=== PATIENT | female | born 1995 | race Caucasian/White ===

== ENCOUNTER 2017-12-16 06:19 | Inpatient (IN) | payer OTHER ==
[2017-12-16] MEDS ORDERED: OXYTOCIN 30 UNITS/LR 500 ML IV (07:00)
[2017-12-16] MEDS ORDERED: CARBOPROST 250 MCG INJ IM (07:00)
[2017-12-16] MEDS ORDERED: METHYLERGONOVINE 0.2 MG INJ IM (07:00)
[2017-12-16] MEDS ORDERED: MISOPROSTOL 200 MCG TAB PR (07:00)
[2017-12-16] MEDS ORDERED: IBUPROFEN 600 MG TAB PO (07:00)
[2017-12-16 07:11] LABS: ADD MAN DIFF? NO
[2017-12-16 07:19] LABS: BASOPHILS % 0.3 % (0.0-2.0); EOSINOPHILS # 0.1 10^3/ul (0.0-0.5); EOSINOPHILS % 0.9 % (0.0-7.0); HEMATOCRIT 35.4 % (37.0-47.0); HEMOGLOBIN 11.7 g/dl (12.0-16.0); LYMPHOCYTES # 2.9 10^3/ul (0.8-2.9); LYMPHOCYTES % 33.4 % (15.0-51.0); MEAN CORPUSCULAR HEMOGLOBIN 29.5 pg (29.0-33.0); MEAN CORPUSCULAR HGB CONC 33.1 g/dl (32.0-37.0); MEAN CORPUSCULAR VOLUME 89.4 fl (82.0-101.0); MEAN PLATELET VOLUME 10.3 fl (7.4-10.4); MONOCYTE # 0.8 10^3/ul (0.3-0.9); NEUTROPHIL # 4.9 10^3/ul (1.6-7.5); NEUTROPHILS % 56.2 % (39.0-77.0); PLATELET COUNT 298 10^3/UL (140-415); RED BLOOD COUNT 3.96 10^6/ul (4.20-5.40); RED CELL DISTRIBUTION WIDTH 14.4 % (11.5-14.5)
[2017-12-16 07:19] LABS: WHITE BLOOD COUNT 8.7 10^3/ul (4.8-10.8)
[2017-12-16 07:40] LABS: INR 0.91; PARTIAL THROMBOPLASTIN TIME 23.6 Sec (25.0-35.0); PROTIME 12.3 Sec (11.9-14.9)
[2017-12-16] MEDS: AMPICILLIN 2 GM/NS (PMX) 100 ML IV (08:03)
[2017-12-16] MEDS: LACTATED RINGER'S 1,000 ML IV* ×3 (08:03→23:00)
[2017-12-16] MEDS: BUTORPHANOL 2 MG INJ IV (08:43)
[2017-12-16] MEDS ORDERED: EPHEDrine SULFATE 50 MG/5 ML SYG IV (09:30)
[2017-12-16] MEDS ORDERED: FENTAnyl 2MCG/ML-ROPIV 0.2% 100 ML BAG EPI (09:30)
[2017-12-16] MEDS ORDERED: DIPHENHYDRAMINE 50 MG INJ IV (09:30)
[2017-12-16] MEDS ORDERED: NALOXONE (0.4 MG/ML) INJ IV (09:30)
[2017-12-16] MEDS ORDERED: ONDANSETRON 4 MG INJ IV ×2 (09:30→15:30)
[2017-12-16] MEDS ORDERED: FENTAnyl 2MCG/ML-ROPIV 0.2% 100 ML (09:31)
[2017-12-16] MEDS: OXYTOCIN 30 UNITS/LR 500 ML IV ×3 (11:12→17:54)
[2017-12-16] MEDS: AMPICILLIN 1 GM/NS (PMX) 50 ML IV (11:16)
[2017-12-16 12:39] LABS: AMPHETAMINE/METHAMPHETAMINE Negative (NEGATIVE); BARBITURATES Negative (NEGATIVE); BENZODIAZEPINES Negative (NEGATIVE); CANNABINOIDS Negative (NEGATIVE); COCAINE Negative (NEGATIVE); OPIATES Negative (NEGATIVE)
[2017-12-16] MEDS: LIDOCAINE 1% (MPF) 30 ML INJ INJ (13:50)
[2017-12-16] MEDS ORDERED: ACETAMINOPHEN 325 MG TAB PO (15:30)
[2017-12-16] MEDS ORDERED: HYDROCODONE/APAP (5/325) TAB PO ×2 (15:30)
[2017-12-16] MEDS ORDERED: OXYCODONE/ASPIRIN (4.88/325) TAB PO ×2 (15:30)
[2017-12-16] MEDS: BENZOCAINE 20% 56 ML SPRAY TOP (17:48)
[2017-12-16] MEDS: WITCH HAZEL/GLYCERIN PAD PR (17:49)
[2017-12-16] MEDS: DIBUCAINE 1% 30 GM OINT PR (17:49)
[2017-12-16] MEDS: LANOLIN 7 GM TUBE TOP (17:50)
[2017-12-16] MEDS: IBUPROFEN 600 MG TAB PO ×2 (17:50→23:24)
[2017-12-16 21:48] LABS: HIV 1&2 ANTIBODY NEGATIVE (NEGATIVE)
[2017-12-16] MEDS: SENNA/DOCUSATE NA (8.6MG/50MG) TAB PO (21:58)
[2017-12-17] MEDS: IBUPROFEN 600 MG TAB PO ×3 (05:44→17:24)
[2017-12-17 07:20] LABS: ADD MAN DIFF? NO
[2017-12-17 07:23] LABS: WHITE BLOOD COUNT 11.8 10^3/ul (4.8-10.8)
[2017-12-17 07:23] LABS: BASOPHILS % 0.3 % (0.0-2.0); EOSINOPHILS # 0.1 10^3/ul (0.0-0.5); EOSINOPHILS % 1.2 % (0.0-7.0); HEMATOCRIT 34.5 % (37.0-47.0); HEMOGLOBIN 11.3 g/dl (12.0-16.0); LYMPHOCYTES # 3.1 10^3/ul (0.8-2.9); LYMPHOCYTES % 26.4 % (15.0-51.0); MEAN CORPUSCULAR HEMOGLOBIN 29.2 pg (29.0-33.0); MEAN CORPUSCULAR HGB CONC 32.8 g/dl (32.0-37.0); MEAN CORPUSCULAR VOLUME 89.1 fl (82.0-101.0); MEAN PLATELET VOLUME 10.4 fl (7.4-10.4); MONOCYTE # 1.1 10^3/ul (0.3-0.9); MONOCYTES % 8.9 % (0.0-11.0); NEUTROPHIL # 7.4 10^3/ul (1.6-7.5); NEUTROPHILS % 62.9 % (39.0-77.0); PLATELET COUNT 259 10^3/UL (140-415); RED BLOOD COUNT 3.87 10^6/ul (4.20-5.40); RED CELL DISTRIBUTION WIDTH 14.6 % (11.5-14.5)
[2017-12-17 09:15] LABS: HEPATITIS B SURFACE ANTIGEN NEGATIVE (NEGATIVE)
[2017-12-17] MEDS: SENNA/DOCUSATE NA (8.6MG/50MG) TAB PO ×2 (09:18→22:04)
[2017-12-17 17:35] LABS: RAPID PLASMA REAGIN NONREACTIVE (NR)
[2017-12-18] MEDS: IBUPROFEN 600 MG TAB PO ×2 (00:29→05:52)
[2017-12-18] MEDS: MINERAL OIL LIGHT 10 ML VIAL TOP (02:11)
[2017-12-18] MEDS: SENNA/DOCUSATE NA (8.6MG/50MG) TAB PO (08:27)
[2017-12-18] MEDS: MEASLES,MUMPS,RUBELLA VACCINE INJ SC* (09:52)
== END 2017-12-18 11:45 | disposition home or self-care (01) | DRG 775 ==
LOC: OBT 06:19 → L-D 06:22 → OBT 06:24 → L-D 06:25 → PP1 15:07
PROVIDERS: Obstetrics & Gynecology
PROC: 10E0XZZ Delivery of Products of Conception, External Approach (ICD-10-PCS; principal; 2017-12-16)
PROC: 0HQ9XZZ Repair Perineum Skin, External Approach (ICD-10-PCS; 2017-12-16)
PROC: 4A1HXCZ Monitoring of Products of Conception, Cardiac Rate, External Approach (ICD-10-PCS; 2017-12-16)
DX: O42.013 Preterm premature rupture of membranes, onset of labor within 24 hours of rupture, third trimester (principal); O70.0 First degree perineal laceration during delivery; Z3A.36 36 weeks gestation of pregnancy; Z37.0 Single live birth
CPT/HCPCS: 62319; 80307; 85025; 85610; 85730; 86592; 86703; 86850; 86900; 86901; 87340